=== PATIENT | male | born 1975 | race African-American/Black ===

== ENCOUNTER 2016-11-04 19:59 | Emergency (ER) | payer SELFPAY ==
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
--- NOTE | 2016-11-04 22:22 | ED MED RECONCILIATION SUMMARY ---
Patient: TERRY SCHAFER Medication Reconciliation Report [facility] VisitID: [id number] [address] [place] [address] 41y, M Registration Date/Time: 11/04/2016 Weight: 85.7 kg Height/Length: 71 in. BMI: 26.4 ALLERGIES: Coconut The patient's Home Medications are listed below: NONE. The source(s) of the original Home Medication information: Not obtained. The following Medications were given to the patient in the Emergency Department: None. The following Medications were prescribed to the patient: Flexeril 10 mg: Take 1 orally every 8 hours as needed for muscle spasm. Dispense twenty (20). No refills. Substitution is permissible. -- Rose Mary Conte A.R.N.P. Ultram 50 mg tablets: take 1-2 orally every 6 hours as needed for pain. Dispense twenty (20). No refills. Substitution is permissible. -- Rose Mary Conte A.R.N.P.
--- NOTE | 2016-11-04 22:22 | ED MAR SUMMARY ---
..... Medication Administration Record [facility] [address] [place], [place] [id number] Patient: TERRY SCHAFER Visit ID: [id number] 41y, M Weight: 85.7 kg Height/Length: 71 in BMI: 26.4 ALLERGIES: Coconut
--- NOTE | 2016-11-04 22:22 | ED MED RECONCILIATION SUMMARY ---
Patient: TERRY SCHAFER Medication Reconciliation Report [facility] VisitID: [id number] [address] [place] [address] 41y, M Registration Date/Time: 11/04/2016 Weight: 85.7 kg Height/Length: 71 in. BMI: 26.4 ALLERGIES: Coconut The patient's Home Medications are listed below: NONE. The source(s) of the original Home Medication information: Not obtained. The following Medications were given to the patient in the Emergency Department: None. The following Medications were prescribed to the patient: Flexeril 10 mg: Take 1 orally every 8 hours as needed for muscle spasm. Dispense twenty (20). No refills. Substitution is permissible. -- Rose Mary Conte A.R.N.P. Ultram 50 mg tablets: take 1-2 orally every 6 hours as needed for pain. Dispense twenty (20). No refills. Substitution is permissible. -- Rose Mary Conte A.R.N.P.
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
--- NOTE | 2016-11-04 22:22 | ED MAR SUMMARY ---
..... Medication Administration Record [facility] [address] [place], [place] [id number] Patient: TERRY SCHAFER Visit ID: [id number] 41y, M Weight: 85.7 kg Height/Length: 71 in BMI: 26.4 ALLERGIES: [place]
== END 2016-11-04 20:40 | disposition home or self-care (01) ==
LOC: ED SRH 19:59
DX: M79.1 Myalgia (principal); V43.52XA Car driver injured in collision with other type car in traffic accident, initial encounter; Y92.410 Unspecified street and highway as the place of occurrence of the external cause; Y99.8 Other external cause status; R42 Dizziness and giddiness